=== PATIENT | female | born 1990 | race African-American/Black ===

== ENCOUNTER 2017-04-19 05:19 | Inpatient (IN) | payer MEDICAID ==
[~2017-04-19 05:19] MED LIST: Citric Acid/Sodium Citrate Solution 30 ML Cup PO SCH; Lactated Ringers 1,000 ML IV SCH; Sodium Chloride 0.9% 10 ML Syringe FLUSH PRN; Sodium Chloride 0.9% 2.5 ML Syringe FLUSH PRN
--- NOTE | 2017-04-19 05:47 | PCM.PREANE ---
Preanesthetic Assessment - Procedure Proposed Procedure: #2 - Anesthesia/Transfusion/Family Hx Anesthesia History: Prior Anesthesia Without Reaction (general anesthetic for C- section in [facility] 2 yr ago, no problems) Family History of Anesthesia Reaction: No Transfusion History: No Prior Transfusion(s) Intubation History: Unknown Additional History: Speaks little [place]. 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 - Review of Systems General: Other () Pulmonary: No Symptoms Cardiovascular: No Symptoms Gastrointestinal: Other (GERD of ) Neurological: No Symptoms Other: Reports: None - Physical Assessment NPO Status Date: 04/18/17 NPO Status Time: 23:00 Height: 5 ft 3 in Weight: 191 lb ASA Class: 2 Mental Status: Alert & Oriented x3 Airway Class: Mallampati = 1 Dentition: Reports: Normal Dentition Thyro-Mental Finger Breadths: 3 Mouth Opening Finger Breadths: 3 ROM/Head Extension: Full Lungs: Clear to Auscultation, Normal Respiratory Effort Cardiovascular: Regular Rate, Regular Rhythm, No Murmurs - Allergies Allergies/Adverse Reactions: Allergies Allergy/AdvReac Type Severity Reaction Status Date / Time No Known Allergies Allergy Verified 04/17/17 09:54 - Blood Blood Available: Yes Product(s) Available: PRBC (T and S) - Anesthesia Plan Pre-Op Medication Ordered: Antacids - Acknowledgements Anesthesia Type Planned: Spinal Pt an Appropriate Candidate for the Planned Anesthesia: Yes Alternatives and Risks of Anesthesia Discussed w Pt/Guardian: Yes Pt/Guardian Understands and Agrees with Anesthesia Plan: Yes PreAnesthesia Questionnaire 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 [No Known Home Meds] 04/17/17 [History] - CURRENT (IN HOUSE) MEDS Current Meds: Current Medications Citric Acid/Sodium Citrate (Bicitra Solution) 30 ml PO .ONCE PRICILLA Lactated Ringer's (Ringers, Lactated) 1,000 mls @ 500 mls/hr IV .BOLUS PRICILLA Sodium Chloride (Saline Flush) 10 ml FLUSH ASDIRECTED PRN PRN Reason: Keep Vein Open Sodium Chloride (Saline Flush) 2.5 ml FLUSH ASDIRECTED PRN PRN Reason: Keep Vein Open
[2017-04-19] MEDS ORDERED: Sodium Chloride 0.9% 10 ML Syringe FLUSH PRN (05:49)
[2017-04-19] MEDS ORDERED: ceFAZolin 2 GM in Premix Bag 1 BAG IV ONE (05:49)
[2017-04-19] MEDS ORDERED: Sodium Chloride 0.9% 2.5 ML Syringe FLUSH PRN (05:49)
[2017-04-19] MEDS ORDERED: Citric Acid/Sodium Citrate Solution 30 ML Cup PO SCH (06:00)
[2017-04-19] MEDS ORDERED: Lactated Ringers 1,000 ML IV SCH ×2 (06:00→09:00)
[2017-04-19] MEDS ORDERED: Morphine PF 10 MG/10 ML SDV ONE (07:19)
[2017-04-19] MEDS ORDERED: Oxytocin 10 Units/1 ML SDV ONE (07:19)
[2017-04-19] MEDS ORDERED: ePHEDrine 50 MG/ML SDV ONE (07:23)
[2017-04-19] MEDS ORDERED: Midazolam 1 MG/ML 2 ML SDV ONE (08:14)
[2017-04-19] MEDS ORDERED: Propofol 200 MG/20 ML SDV ONE (08:25)
[2017-04-19] MEDS ORDERED: fentaNYL 100 MCG/2 ML SDV ONE (08:54)
[2017-04-19] MEDS ORDERED: Octyl 2-Cyanoacrylate 1 Tube ONE (08:59)
[2017-04-19] MEDS ORDERED: Bisacodyl 10 MG Supp RECTAL PRN (09:00)
[2017-04-19] MEDS ORDERED: Ondansetron 4 MG/2 ML SDV IV PRN (09:00)
[2017-04-19] MEDS ORDERED: diphenhydrAMINE 50 MG/ML SDV IVPUSH PRN (09:00)
[2017-04-19] MEDS ORDERED: Acetaminophen/oxyCODONE 325-5 MG Tab PO PRN ×2 (09:00→09:31)
[2017-04-19] MEDS ORDERED: Ibuprofen 800 MG Tab PO PRN (09:00)
[2017-04-19] MEDS ORDERED: Lanolin 100% Cream 7 GM Tube TOP PRN (09:00)
--- NOTE | 2017-04-19 09:04 | PCM.LDHP ---
L&D History of Present Illness - General Date of Service: 04/19/17 Admit Problem/Dx: Patient Status Order with Admit Dx/Problem 04/18/17 08:44 Patient Status [ADT] Routine 04/19/17 05:49 Patient Status [ADT] Routine 04/19/17 09:00 Patient Status [ADT] Routine Admission Diagnosis/Problem Admission Diagnosis/Problem Source of Information: Patient History Limitations: Reports: No Limitations - History of Present Illness Improves with: Reports: None Worsens with: Reports: None Associated Symptoms: Reports: N - Related Data Allergies/Adverse Reactions: Allergies Allergy/AdvReac Type Severity Reaction Status Date / Time No Known Allergies Allergy Verified 04/17/17 09:54 Home Medications: Home Meds . 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: Endocrine/Metabolic History: Reports: Obesity/BMI 30+ - Past Surgical History Female Surgical History: Reports: Section Social & Family History - Tobacco Use Smoking Status *Q: Never Smoker - Recreational Drug Use Recreational Drug Use: No Drug Use in Last 12 Months: No H&P Review of Systems - Review of Systems: Review Of Systems: See Below General: Reports: No Symptoms HEENT: Reports: No Symptoms Pulmonary: Reports: No Symptoms Cardiovascular: Reports: No Symptoms Gastrointestinal: Reports: No Symptoms Genitourinary: Reports: No Symptoms Musculoskeletal: Reports: No Symptoms Skin: Reports: No Symptoms Psychiatric: Reports: No Symptoms Neurological: Reports: No Symptoms Hematologic/Lymphatic: Reports: No Symptoms Immunologic: Reports: No Symptoms L&D Exam - Exam Exam: See Below - Vital Signs Weight: 86.636 kg - OB Specific Contraction Intensity: Mild Movement: Active Heart Tones: Present Presentation: Vertex - Cordero Score Cordero Score Cervix Position: Posterior Cordero Score Consistency: Firm - Exam General: Alert, Oriented HEENT: PERRLA, Conjunctiva Clear, EACs Clear, EOMI, Hearing Intact, Mucosa Moist & Wall, Nares Patent, Normal Nasal Septum, Posterior Pharynx Clear, TMs Clear Neck: Supple, Trachea Midline Lungs: Clear to Auscultation, Normal Respiratory Effort Cardiovascular: Regular Rate, Regular Rhythm GI/Abdominal Exam: Normal Bowel Sounds, Soft, Non-Tender, No Organomegaly, No Distention, No Abnormal Bruit, No Mass, Pelvis Stable Rectal Exam: Normal Exam, Normal Rectal Tone Genitourinary: Normal external exam, Normal bimanual exam, Normal speculum exam Back Exam: Normal Inspection, Full Range of Motion Extremities: Normal Inspection, Normal Range of Motion, Non-Tender, No Pedal Edema, Normal Capillary Refill Skin: Warm, Dry, Intact Neurological: Cranial Nerves Intact, Reflexes Equal Bilateral Psychiatric: Alert, Normal Affect, Normal Mood - Patient Data Lab Results Last 24 hrs: Laboratory Results - last 24 hr 04/19/17 04/19/17 Range/Units 06:10 06:10 WBC 5.39 (4.0-11.0) K/uL RBC 4.34 (4.30-5.90) M/uL Hgb 12.2 (12.0-16.0) g/dL Hct 36.2 (36.0-46.0) % MCV 83.4 (80.0-98.0) fL MCH 28.1 (27.0-32.0) pg MCHC 33.7 (31.0-37.0) g/dL RDW Std Deviation 41.3 (28.0-62.0) fl RDW Coeff of Shy 14 (11.0-15.0) % Plt Count 209 (150-400) K/uL MPV 9.20 (7.40-12.00) fL Nucleated RBC % 0.0 /100WBC Nucleated RBCs # 0 K/uL Blood Type O POSITIVE Antibody Screen NEGATIVE Result Diagrams: 04/19/17 06:10 Problem List Initiated/Reviewed/Updated: Yes Orders Last 24hrs: Active Orders 24 hr Category Date Time Status Patient Status [ADT] Routine ADT 04/19/17 09:00 Ordered Ambulate [RC] PER UNIT ROUTINE Care 04/19/17 09:00 Ordered Antiembolic Devices [RC] PER UNIT ROUTINE Care 04/19/17 09:01 Ordered Communication Order [RC] PER UNIT ROUTINE Care 04/19/17 09:00 Ordered Communication Order [RC] PER UNIT ROUTINE Care 04/19/17 09:00 Ordered Communication Order [RC] Per Unit Routine Care 04/19/17 09:00 Ordered Non Stress Test [RC] PER UNIT ROUTINE Care 04/18/17 08:44 Active Non Stress Test [RC] PER UNIT ROUTINE Care 04/19/17 05:49 Active May Shower [RC] ASDIRECTED Care 04/19/17 09:00 Ordered Notify Provider Vital Signs [RC] PRN Care 04/19/17 05:49 Active Procedure Site Prep Instruct [RC] ASDIRECTED Care 04/18/17 08:44 Active Procedure Site Prep Instruct [RC] ASDIRECTED Care 04/19/17 05:49 Active RT Incentive Spirometry [RC] Q2HWA Care 04/19/17 09:00 Ordered Up ad Tanya [RC] ASDIRECTED Care 04/18/17 08:44 Active Up ad Tanya [RC] ASDIRECTED Care 04/19/17 05:49 Active Verify Patient Consent Obtain [RC] ASDIRECTED Care 04/19/17 05:49 Active Vital Signs [RC] PER UNIT ROUTINE Care 04/18/17 08:44 Active Vital Signs [RC] PER UNIT ROUTINE Care 04/19/17 05:49 Active Vital Signs [RC] PER UNIT ROUTINE Care 04/19/17 09:00 Ordered HEMOGLOBIN/HEMATOCRIT,HH [HEME] Timed Lab 04/20/17 05:11 Ordered Acetaminophen/oxyCODONE [Percocet 325-5 MG] Med 04/19/17 09:00 Ordered 1 tab PO Q4H PRN Acetaminophen/oxyCODONE [Percocet 325-5 MG] Med 04/19/17 09:00 Ordered 2 tab PO Q4H PRN Bisacodyl [Dulcolax] Med 04/19/17 09:00 Ordered 10 mg RECTAL .ONCE PRN Citric Acid/Sodium Citrate [Bicitra Solution] Med 04/18/17 08:45 Active 30 ml PO .ONCE Citric Acid/Sodium Citrate [Bicitra Solution] Med 04/19/17 06:00 Active 30 ml PO .ONCE Docusate Sodium [Colace] Med 04/19/17 09:00 Ordered 100 mg PO BID Ibuprofen [Motrin] Med 04/19/17 09:00 Ordered 800 mg PO Q8H PRN Ketorolac [Toradol] Med 04/19/17 09:00 Ordered 30 mg IVPUSH Q6H Lactated Ringers @ 125 MLS/HR(1000ml) Med 04/19/17 09:00 Ordered Lactated Ringers [Ringers, Lactated] 1,000 ml IV ASDIRECTED Lactated Ringers [Ringers, Lactated] 1,000 ml Med 04/18/17 08:45 Active IV .BOLUS Lactated Ringers [Ringers, Lactated] 1,000 ml Med 04/19/17 06:00 Active IV .BOLUS Lanolin [Lansinoh HPA] Med 04/19/17 09:00 Ordered See Dose Instructions TOP ASDIRECTED PRN Ondansetron [Zofran] Med 04/19/17 09:00 Ordered 4 mg IV Q4H PRN Sodium Chloride 0.9% [Saline Flush] Med 04/18/17 08:44 Active 10 ml FLUSH ASDIRECTED PRN Sodium Chloride 0.9% [Saline Flush] Med 04/19/17 05:49 Active 10 ml FLUSH ASDIRECTED PRN Sodium Chloride 0.9% [Saline Flush] Med 04/18/17 08:44 Active 2.5 ml FLUSH ASDIRECTED PRN Sodium Chloride 0.9% [Saline Flush] Med 04/19/17 05:49 Active 2.5 ml FLUSH ASDIRECTED PRN diphenhydrAMINE [Benadryl] Med 04/19/17 09:00 Ordered 25 mg IVPUSH Q6H PRN Assess Lochia [WOMSER] Per Unit Routine Ot 04/19/17 09:00 Ordered Assess Uterine Involution [WOMSER] Per Unit Routine Ot 04/19/17 09:00 Ordered Breast Pump [WOMSER] Per Unit Routine Ot 04/19/17 09:00 Ordered Peripheral IV Discontinue [OM.PC] Routine Ot 04/19/17 09:00 Ordered Peripheral IV Insertion Adult [OM.PC] Routine Oth 04/18/17 08:44 Ordered Peripheral IV Insertion Adult [OM.PC] Routine Ot 04/19/17 05:49 Ordered Schedule Procedure [COMM] Per Unit Routine Oth 04/18/17 08:44 Ordered Schedule Procedure [COMM] Per Unit Routine Ot 04/19/17 05:49 Ordered Sequential Compression Device [OM.PC] Per Unit Routine Ot 04/19/17 09:00 Ordered Resuscitation Status Routine Resus Stat 04/18/17 08:44 Ordered Medication Orders Citric Acid/Sodium Citrate (Bicitra Solution) 30 ml PO .ONCE PRICILLA Last Admin: 04/19/17 07:59 Dose: 30 ml Citric Acid/Sodium Citrate (Bicitra Solution) 30 ml PO .ONCE PRICILLA Lactated Ringer's (Ringers, Lactated) 1,000 mls @ 500 mls/hr IV .BOLUS PRICILLA Lactated Ringer's (Ringers, Lactated) 1,000 mls @ 500 mls/hr IV .BOLUS PRICILLA Last Admin: 04/19/17 07:37 Dose: 500 mls/hr Sodium Chloride (Saline Flush) 10 ml FLUSH ASDIRECTED PRN PRN Reason: Keep Vein Open Sodium Chloride (Saline Flush) 2.5 ml FLUSH ASDIRECTED PRN PRN Reason: Keep Vein Open Sodium Chloride (Saline Flush) 10 ml FLUSH ASDIRECTED PRN PRN Reason: Keep Vein Open Sodium Chloride (Saline Flush) 2.5 ml FLUSH ASDIRECTED PRN PRN Reason: Keep Vein Open Assessment/Plan Comment:: Termpregnancy admitted for elective repeat C/section.
--- NOTE | 2017-04-19 09:06 | PCM.OPNOTE ---
- General Post-Op/Procedure Note Date of Surgery/Procedure: 04/19/17 Operative Procedure(s): term elective repeat C/section. Pre Op Diagnosis: Term previous C/section X2 Post-Op Diagnosis: Same Anesthesia Technique: Spinal Primary Surgeon: Nithin Melendrez Fabricating Machine Operator: Wen Adames EBL in mLs: 700 Complications: None Condition: Good
[2017-04-19] MEDS ORDERED: Naloxone 0.4 MG/ML Syringe IVPUSH PRN (09:31)
[2017-04-19] MEDS ORDERED: Nalbuphine 10 MG/1 ML Vial IVPUSH PRN (09:31)
--- NOTE | 2017-04-19 09:48 | OR ---
SURGEON: Nithin Melendrez MD DATE OF PROCEDURE: 04/19/2017 PREOPERATIVE DIAGNOSIS: Term , previous section x2. POSTOPERATIVE DIAGNOSIS: Term , previous section x2. OPERATION PERFORMED: Repeat low transverse section. SILO WORKER: CHAPITO Ventura ANESTHESIA: Spinal, Heena Rodriguez and Dr. Howell. ESTIMATED BLOOD LOSS: 700 mL. COMPLICATIONS: None. FINDINGS: Normal uterus and ovary, male fetus in vertex presentation. score reported to be 8 and 9. The weight is not available. INDICATIONS FOR SURGERY: This patient is 26. She had 2 previous sections. She is term. She is followed in our clinic. She is admitted for elective repeat section. PROCEDURE IN DETAIL: The patient was brought to the OR, properly identified, and after a timeout and adequate level of spinal anesthesia, with a Fortune catheter in the bladder, the patient was prepped and draped in a sterile fashion as usual. Low transverse Pfannenstiel incision was done excising the old scar. The Claudia's fascia and rectus fascia was opened in direction of the incision, the two recti muscles were , and peritoneal cavity was entered. The lower uterine segment was identified and low transverse uterine incision was done and extended manually with the hand. Fetus was delivered without any problem, cried immediately. score was reported to be 8 and 9. The placenta delivered spontaneous, complete, and intact and then repair of the lower uterine segment done with 2-0 Vicryl continuous interlocking in 2 layers using 0 Vicryl and then reperitonealization of the lower uterine segment done with 2-0 Vicryl continuous. The peritoneal cavity evacuated completely from all blood and blood clot, and closed with 2-0 Vicryl continuous. The rectus fascia was closed with #1 PDS double strand continuous, the Claudia's fascia with 3-0 Vicryl continuous, and the skin closed in a subcuticular fashion using 5-0 monofilament sutures and Dermabond. Instrument and sponge count was correct. The patient tolerated the procedure well, went to recovery room in stable and general condition. JOSHUA / VICENTA /[id number]
[2017-04-19] MEDS: Ketorolac 30 MG/ML SDV IVPUSH SCH ×3 (09:49→21:05)
--- NOTE | 2017-04-19 09:55 | PCM.POSTAN ---
POST ANESTHESIA ASSESSMENT - MENTAL STATUS Mental Status: Alert, Oriented - RESPIRATORY Respiratory Status: Respiratory Rate WNL, Airway Patent, O2 Saturation Stable - CARDIOVASCULAR CV Status: Pulse Rate WNL, Blood Pressure Stable - GASTROINTESTINAL GI Status: No Symptoms - PAIN Pain Score: 0 - POST OP HYDRATION Hydration Status: Adequate & Stable - OBSERVATIONS Free Text/Narrative:: Pt stable with no pain reported unless fundal massage being performed. No nausea at this time.
[2017-04-19] MEDS: Docusate Sodium 100 MG Cap PO SCH ×2 (18:50→21:06)
[2017-04-20] MEDS: Ketorolac 30 MG/ML SDV IVPUSH SCH ×2 (03:15→09:49)
--- NOTE | 2017-04-20 07:50 | PCM.PNPP ---
- General Info Date of Service: 04/20/17 Admission Dx/Problem (Free Text): Patient Status Order with Admit Dx/Problem 04/18/17 08:44 Patient Status [ADT] Routine 04/19/17 05:49 Patient Status [ADT] Routine 04/19/17 09:00 Patient Status [ADT] Routine Admission Diagnosis/Problem Admission Diagnosis/Problem Functional Status: Reports: Pain Controlled, Tolerating Diet, Ambulating, Urinating - Review of Systems General: Reports: No Symptoms HEENT: Reports: No Symptoms Pulmonary: Reports: No Symptoms Cardiovascular: Reports: No Symptoms Gastrointestinal: Reports: No Symptoms Genitourinary: Reports: No Symptoms Musculoskeletal: Reports: No Symptoms Skin: Reports: No Symptoms Neurological: Reports: No Symptoms Psychiatric: Reports: No Symptoms - General Info Date of Service: 04/20/17 - Patient Data Vital Signs - Most Recent: Last Vital Signs Temp 36.6 C 04/20/17 05:00 Pulse 102 H 04/20/17 07:00 Resp 16 04/20/17 07:00 BP 108/66 04/20/17 05:00 Pulse Ox 98 04/20/17 07:00 Weight - Most Recent: 86.636 kg I&O - Last 24 Hours: Intake & Output 04/19/17 04/20/17 04/20/17 22:59 06:59 14:59 Intake Total 400 Output Total 175 1525 Balance -175 -1125 Lab Results - Last 24 Hours: Laboratory Results - last 24 hr 04/20/17 Range/Units 05:10 Hgb 7.1 L (12.0-16.0) g/dL Hct 21.6 L (36.0-46.0) % Med Orders - Current: Current Medications Bisacodyl (Dulcolax) 10 mg RECTAL .ONCE PRN PRN Reason: Constipation Citric Acid/Sodium Citrate (Bicitra Solution) 30 ml PO .ONCE PRICILLA Last Admin: 04/19/17 07:59 Dose: 30 ml Citric Acid/Sodium Citrate (Bicitra Solution) 30 ml PO .ONCE PRICILLA Diphenhydramine HCl (Benadryl) 25 mg IVPUSH Q6H PRN PRN Reason: Itching or Nausea Last Admin: 04/20/17 00:37 Dose: 25 mg Docusate Sodium (Colace) 100 mg PO BID PRICILLA Last Admin: 04/19/17 21:06 Dose: 100 mg Emollient Ointment (Lansinoh Hpa) 0 gm TOP ASDIRECTED PRN PRN Reason: Sore Nipples Lactated Ringer's (Ringers, Lactated) 1,000 mls @ 500 mls/hr IV .BOLUS PRICILLA Lactated Ringer's (Ringers, Lactated) 1,000 mls @ 500 mls/hr IV .BOLUS [facility] Last Admin: 04/19/17 07:37 Dose: 500 mls/hr Lactated Ringer's (Ringers, Lactated) 1,000 mls @ 125 mls/hr IV ASDIRECTED [facility] Last Admin: 04/19/17 12:11 Dose: 125 mls/hr Ibuprofen (Motrin) 800 mg PO Q8H PRN PRN Reason: mild pain or fever Ketorolac Tromethamine (Toradol) 30 mg IVPUSH Q6H [facility] Stop: 04/20/17 09:01 Last Admin: 04/20/17 03:15 Dose: 30 mg Nalbuphine HCl (Nubain) 2.5 mg IVPUSH Q3H PRN PRN Reason: Pruritis Stop: 04/20/17 09:33 Naloxone HCl (Narcan) 0.1 mg IVPUSH ONETIME PRN PRN Reason: RR<6 WITH STIMULATION Stop: 04/20/17 09:33 Ondansetron HCl (Zofran) 4 mg IV Q4H PRN PRN Reason: Nausea/Vomiting Last Admin: 04/19/17 12:06 Dose: 4 mg Oxycodone/Acetaminophen (Percocet 325-5 Mg) 1 tab PO Q4H PRN PRN Reason: Pain (moderate 4-6) Oxycodone/Acetaminophen (Percocet 325-5 Mg) 2 tab PO Q4H PRN PRN Reason: Pain (moderate 4-6) Oxycodone/Acetaminophen (Percocet 325-5 Mg) 1 tab PO .Q4HRS PRN PRN Reason: Pain (moderate 4-6) Stop: 04/20/17 08:15 Last Admin: 04/19/17 12:24 Dose: 1 tab Sodium Chloride (Saline Flush) 10 ml FLUSH ASDIRECTED PRN PRN Reason: Keep Vein Open Sodium Chloride (Saline Flush) 2.5 ml FLUSH ASDIRECTED PRN PRN Reason: Keep Vein Open Sodium Chloride (Saline Flush) 10 ml FLUSH ASDIRECTED PRN PRN Reason: Keep Vein Open Sodium Chloride (Saline Flush) 2.5 ml FLUSH ASDIRECTED PRN PRN Reason: Keep Vein Open Discontinued Medications Ephedrine Sulfate (Ephedrine Sulfate) Confirm Administered Dose 50 mg .ROUTE .STK-MED ONE Stop: 04/19/17 07:24 Fentanyl (Sublimaze) Confirm Administered Dose 100 mcg .ROUTE .STK-MED ONE Stop: 04/19/17 08:55 Cefazolin Sodium/Dextrose 2 gm (/ Premix) 50 mls @ 100 mls/hr IV ONETIME ONE Stop: 04/19/17 06:18 Last Admin: 04/19/17 18:50 Dose: Not Given Midazolam HCl (Versed 1 Mg/Ml) Confirm Administered Dose 2 mg .ROUTE .STK-MED ONE Stop: 04/19/17 08:15 Morphine Sulfate (Duramorph Pf) Confirm Administered Dose 10 mg .ROUTE .STK-MED ONE Stop: 04/19/17 07:20 Octyl Cyanoacrylate (Dermabond Advance) Confirm Administered Dose 1 applic .ROUTE .STK-MED ONE Stop: 04/19/17 09:00 Oxytocin (Pitocin) Confirm Administered Dose 30 unit .ROUTE .STK-MED ONE Stop: 04/19/17 07:20 Propofol (Diprivan 20 Ml) Confirm Administered Dose 200 mg .ROUTE .STK-MED ONE Stop: 04/19/17 08:26 - Interaction Infant Disposition, : [place] in Room with Family Infant Interaction: Holding Infant Feeding: Bottle Fed , Breastfed ; Nursed Well Support Person: - Recovery Exam Fundal Tone: Firm Fundal Level: At Umbilicus Fundal Placement: Midline Lochia Amount: Scant Lochia Color: Rubra/Red Perineum Description: Intact, Minimal Bruising/Swelling Episiotomy/Laceration: None Bladder Status: Nonpalpable, Indwelling Catheter in Place Urinary Elimination: Indwelling Catheter - Exam General: Alert, Oriented, Cooperative, No Acute Distress Lungs: Clear to Auscultation, Normal Respiratory Effort Cardiovascular: Regular Rate, Regular Rhythm, No Murmurs GI/Abdominal Exam: Soft, Non-Tender, No Organomegaly, No Distention Extremities: Normal Range of Motion, Non-Tender, No Pedal Edema, Normal Capillary Refill Skin: Warm Wound/Incisions: Drainage (Dressing changed this am by Dr Melendrez due to increased drainage. Incision well aproxamated, no erythema.) Neurological: No New Focal Deficit, Normal Speech, Normal Tone Psy/Mental Status: Alert, Normal Affect, Normal Mood - Problem List & Annotations (1) Supervision of normal IUP (intrauterine ) in multigravida SNOMED Code(s): 213595257, 675899898, 659537119 Code(s): Z34.80 - ENCOUNTER FOR SUPRVSN OF NORMAL , UNSP TRIMESTER Status: Acute Priority: High Current Visit: Yes Qualifiers: Trimester: third trimester Qualified Code(s): Z34.83 - Encounter for supervision of other normal , third trimester (2) delivery delivered SNOMED Code(s): 111803404 Code(s): O82 - ENCOUNTER FOR DELIVERY WITHOUT INDICATION Status: Acute Priority: High Current Visit: Yes - Problem List Review Problem List Initiated/Reviewed/Updated: Yes - Assessment Assessment:: in room with mom holding. and bottle feeding. Pt sitting up in bed alert and oriented, no complaints (used google translate Yi to Swahili) Denies any chest pain, SOB, pain or tenderness in legs/calfs. Pain medication helping. Hgb dropped from 12.6 to 7[address] Melendrez aware. - Plan Plan:: Termpregnancy admitted for elective repeat C/section. Post Stable, continue pp plan of care. May discharge home tomorrow if cont stable.
[2017-04-20] MEDS: Docusate Sodium 100 MG Cap PO SCH ×2 (09:49→21:08)
[2017-04-20] MEDS: Acetaminophen/oxyCODONE 325-5 MG Tab PO PRN (16:56)
--- NOTE | 2017-04-20 23:15 | PCM48HPAN ---
Post Anesthesia Note - EVALUATION WITHIN 48HRS OF ANESTHETIC Vital Signs in Normal Range: Yes Patient Participated in Evaluation: Yes Respiratory Function Stable: Yes Airway Patent: Yes Cardiovascular Function Stable: Yes Hydration Status Stable: Yes Pain Control Satisfactory: Yes Nausea and Vomiting Control Satisfactory: Yes Mental Status Recovered: Yes - COMMENTS/OBSERVATIONS Free Text/Narrative:: Mild tachycardia and lightheaded, HgB 5 point drop from pre-op, likely volume related
[2017-04-21] MEDS: Acetaminophen/oxyCODONE 325-5 MG Tab PO PRN ×2 (00:20→10:14)
--- NOTE | 2017-04-21 09:34 | PCM.DCSUM1 ---
Discharge Summary - Hospital Course Free Text/Narrative:: Discharge home with infant, follow up in ten days for an incision check and in six weeks or sooner if needed. (Translate into Swahili: Terry ackerman sheron na shanice hamiltona siku norman joya ukaguzi wa incision na tamela pete wiki jose kwa ajili ya ziara baada ya sehemu.) (translate into [place]: Shanti galindo"shana et suivre la clinique dans dex jours pour un controle d"incision, puis dans six semaines pour la visite post-). - Discharge Data Discharge Date: 04/21/17 Discharge Disposition: Home, Self-Care 01 Condition: Good - Discharge Diagnosis/Problem(s) (1) Supervision of normal IUP (intrauterine ) in multigravida SNOMED Code(s): 670617090, [id number], [id number] ICD Code: Z34.80 - ENCOUNTER FOR SUPRVSN OF NORMAL , UNSP TRIMESTER Status: Acute Priority: High Current Visit: Yes Qualifiers: Trimester: third trimester Qualified Code(s): Z34.83 - Encounter for supervision of other normal , third trimester (2) delivery delivered SNOMED Code(s): 864483590 ICD Code: O82 - ENCOUNTER FOR DELIVERY WITHOUT INDICATION Status: Acute Priority: High Current Visit: Yes - Patient Summary/Data Operative Procedure(s) Performed: term elective repeat C/section. - Patient Instructions Diet: Usual Diet as Tolerated Activity: As Tolerated, Rest and Relax Today Driving: Do Not Drive Showering/Bathing: May Shower Wound/Incision Care: Keep Operative Site/Wound Site Clean and Dry Notify Provider of: Fever, Increased Pain, Swelling and Redness, Drainage, Nausea and/or Vomiting Other/Special Instructions: Discharge home with , follow up in ten days for an incision check and in six weeks or sooner if needed. (Translate into Swahili: Terry ackerman sheron na shanice hamiltona siku norman kwa ukaguzi wa incision na tamela pete wiki jose kwa ajili ya ziara baada ya sehemu.) (translate into [place]: Shanti galindo"shana et suivre la clinique dans dex jours pour un controle d"incision, puis dans six semaines pour la visite post-). - Discharge Plan Home Medications: Home Meds . [No Known Home Meds] 04/17/17 [History] Referrals: [facility] [place] [Outside] Nithin Melendrez MD [Physician] - ( week- April 27 @ 10:45am w/ Dr. Melendrez week- May 30 @ 10:45am w/ Dr. Melendrez) - General Info Date of Service: 04/21/17 Admission Dx/Problem (Free Text: Patient Status Order with Admit Dx/Problem 04/18/17 08:44 Patient Status [ADT] Routine 04/19/17 05:49 Patient Status [ADT] Routine 04/19/17 09:00 Patient Status [ADT] Routine Admission Diagnosis/Problem Admission Diagnosis/Problem Functional Status: Reports: Pain Controlled, Tolerating Diet, Ambulating, Urinating - Review of Systems General: Reports: No Symptoms HEENT: Reports: No Symptoms Pulmonary: Reports: No Symptoms Cardiovascular: Reports: No Symptoms Gastrointestinal: Reports: No Symptoms Genitourinary: Reports: No Symptoms Musculoskeletal: Reports: No Symptoms Skin: Reports: No Symptoms Neurological: Reports: No Symptoms Psychiatric: Reports: No Symptoms - Patient Data Vitals - Most Recent: Last Vital Signs Temp 36.8 C 04/21/17 04:00 Pulse 114 H 04/21/17 04:00 Resp 18 04/21/17 04:00 BP 129/56 L 04/21/17 04:00 Pulse Ox 97 04/21/17 04:00 Weight - Most Recent: 86.636 kg Med Orders - Current: Current Medications Bisacodyl (Dulcolax) 10 mg RECTAL .ONCE PRN PRN Reason: Constipation Citric Acid/Sodium Citrate (Bicitra Solution) 30 ml PO .ONCE PRICILLA Last Admin: 04/19/17 07:59 Dose: 30 ml Citric Acid/Sodium Citrate (Bicitra Solution) 30 ml PO .ONCE PRICILLA Diphenhydramine HCl (Benadryl) 25 mg IVPUSH Q6H PRN PRN Reason: Itching or Nausea Last Admin: 04/20/17 00:37 Dose: 25 mg Docusate Sodium (Colace) 100 mg PO BID [facility] Last Admin: 04/20/17 21:08 Dose: 100 mg Emollient Ointment (Lansinoh Hpa) 0 gm TOP ASDIRECTED PRN PRN Reason: Sore Nipples Lactated Ringer's (Ringers, Lactated) 1,000 mls @ 500 mls/hr IV .BOLUS PRICILLA Lactated Ringer's (Ringers, Lactated) 1,000 mls @ 500 mls/hr IV .BOLUS [facility] Last Admin: 04/19/17 07:37 Dose: 500 mls/hr Lactated Ringer's (Ringers, Lactated) 1,000 mls @ 125 mls/hr IV ASDIRECTED [facility] Last Admin: 04/19/17 12:11 Dose: 125 mls/hr Ibuprofen (Motrin) 800 mg PO Q8H PRN PRN Reason: mild pain or fever Ondansetron HCl (Zofran) 4 mg IV Q4H PRN PRN Reason: Nausea/Vomiting Last Admin: 04/19/17 12:06 Dose: 4 mg Oxycodone/Acetaminophen (Percocet 325-5 Mg) 1 tab PO Q4H PRN PRN Reason: Pain (moderate 4-6) Oxycodone/Acetaminophen (Percocet 325-5 Mg) 2 tab PO Q4H PRN PRN Reason: Pain (moderate 4-6) Last Admin: 04/21/17 00:20 Dose: 2 tab Sodium Chloride (Saline Flush) 10 ml FLUSH ASDIRECTED PRN PRN Reason: Keep Vein Open Sodium Chloride (Saline Flush) 2.5 ml FLUSH ASDIRECTED PRN PRN Reason: Keep Vein Open Last Admin: 04/20/17 09:51 Dose: 2.5 ml Sodium Chloride (Saline Flush) 10 ml FLUSH ASDIRECTED PRN PRN Reason: Keep Vein Open Sodium Chloride (Saline Flush) 2.5 ml FLUSH ASDIRECTED PRN PRN Reason: Keep Vein Open Discontinued Medications Ephedrine Sulfate (Ephedrine Sulfate) Confirm Administered Dose 50 mg .ROUTE .STK-MED ONE Stop: 04/19/17 07:24 Fentanyl (Sublimaze) Confirm Administered Dose 100 mcg .ROUTE .STK-MED ONE Stop: 04/19/17 08:55 Cefazolin Sodium/Dextrose 2 gm (/ Premix) 50 mls @ 100 mls/hr IV ONETIME ONE Stop: 04/19/17 06:18 Last Admin: 04/19/17 18:50 Dose: Not Given Ketorolac Tromethamine (Toradol) 30 mg IVPUSH Q6H PRICILLA Stop: 04/20/17 09:01 Last Admin: 04/20/17 09:49 Dose: 30 mg Midazolam HCl (Versed 1 Mg/Ml) Confirm Administered Dose 2 mg .ROUTE .STK-MED ONE Stop: 04/19/17 08:15 Morphine Sulfate (Duramorph Pf) Confirm Administered Dose 10 mg .ROUTE .STK-MED ONE Stop: 04/19/17 07:20 Nalbuphine HCl (Nubain) 2.5 mg IVPUSH Q3H PRN PRN Reason: Pruritis Stop: 04/20/17 09:33 Naloxone HCl (Narcan) 0.1 mg IVPUSH ONETIME PRN PRN Reason: RR<6 WITH STIMULATION Stop: 04/20/17 09:33 Octyl Cyanoacrylate (Dermabond Advance) Confirm Administered Dose 1 applic .ROUTE .STK-MED ONE Stop: 04/19/17 09:00 Oxycodone/Acetaminophen (Percocet 325-5 Mg) 1 tab PO .Q4HRS PRN PRN Reason: Pain (moderate 4-6) Stop: 04/20/17 08:15 Last Admin: 04/19/17 12:24 Dose: 1 tab Oxytocin (Pitocin) Confirm Administered Dose 30 unit .ROUTE .STK-MED ONE Stop: 04/19/17 07:20 Propofol (Diprivan 20 Ml) Confirm Administered Dose 200 mg .ROUTE .STK-MED ONE Stop: 04/19/17 08:26 - Exam General: Reports: Alert, Oriented, Cooperative, No Acute Distress Lungs: Reports: Clear to Auscultation, Normal Respiratory Effort Cardiovascular: Reports: Regular Rate, Regular Rhythm, No Murmurs GI/Abdominal Exam: Normal Bowel Sounds, Soft, Non-Tender, No Organomegaly, No Distention, No Abnormal Bruit, No Mass, Pelvis Stable (Female) Exam: Vaginal Bleeding Rectal (Female) Exam: Deferred Back Exam: Reports: Full Range of Motion Extremities: Normal Range of Motion, Non-Tender, No Pedal Edema, Normal Capillary Refill Skin: Reports: Warm, Dry, Intact Wound/Incisions: Reports: Healing Well, No Drainage Neurological: Reports: No New Focal Deficit, Normal Speech, Normal Tone Psy/Mental Status: Reports: Alert, Normal Affect, Normal Mood *Q Meaningful Use (DIS) - VTE *Q VTE Criteria *Q: - Stroke *Q Stroke Criteria *Q: - AMI *Q AMI Criteria *Q:
[2017-04-21] MEDS: Docusate Sodium 100 MG Cap PO SCH (10:14)
[2017-04-21 10:32] VITALS: BP 101/62
== END 2017-04-21 12:00 | disposition home or self-care (01) | DRG 766 ==
LOC: MW.OB 05:19
PROVIDERS: ADMIT Obstetrics & Gynecology; ATTEND Obstetrics & Gynecology
PROC: 10D00Z1 Extraction of Products of Conception, Low, Open Approach (ICD-10-PCS; principal; 2017-04-19)
DX: O34.211 Maternal care for low transverse scar from previous cesarean delivery (principal); Z3A.38 38 weeks gestation of pregnancy; Z37.0 Single live birth
CPT/HCPCS: 01961; 36415; 59025; 85014; 85018; 85027; 86850; 86900; 86901; A9270-GY; J1200; J1885; J2250; J2270; J2405; J2590; J2704; J3010; J7120

== ENCOUNTER 2017-04-24 22:23 | Emergency (ER) | payer MEDICAID ==
[2017-04-24] MEDS ORDERED: Acetaminophen/HYDROcodone 325-10 MG Tab PO ONE (22:41)
[2017-04-24] MEDS ORDERED: Acetaminophen/HYDROcodone 325-5 MG Tab PO ONE (22:41)
--- NOTE | 2017-04-24 22:44 | EDM.PDOC ---
ED HPI GENERAL MEDICAL PROBLEM - General Chief Complaint: Abdominal Pain Stated Complaint: PAIN CSECTION Time Seen by Provider: 04/24/17 22:43 - History of Present Illness INITIAL COMMENTS - FREE TEXT/NARRATIVE: HISTORY AND PHYSICAL: History of present illness: Patient 26-year-old female status post recent section and did not get her postoperative pain medications filled on discharge and is here now for pain medication she's had no fever chills nausea vomiting her tendernesses in her incisional region is been no urinary symptoms shortness of breath cough or other complaints. Review of systems: As per history of present illness and below otherwise all systems reviewed and negative. Past medical history: As per history of present illness and as reviewed below otherwise noncontributory. Surgical history: As per history of present illness and as reviewed below otherwise noncontributory. Social history: No reported history of drug or alcohol abuse. Family history: As per history of present illness and as reviewed below otherwise noncontributory. Physical exam: HEENT: Atraumatic, normocephalic, pupils reactive, negative for conjunctival pallor or scleral icterus, mucous membranes moist, throat clear, neck supple, nontender, trachea midline. Lungs: Clear to auscultation, breath sounds equal bilaterally, chest nontender. Heart: S1S2, regular, negative for clicks, rubs, or JVD. Abdomen: Soft, nondistended, incisional tenderness with no erythema no discharge no warmth noted. Negative for masses or hepatosplenomegaly. Negative for costovertebral tenderness. Pelvis: Stable nontender. Genitourinary: Deferred. Rectal: Deferred. Extremities: Atraumatic, negative for cords or calf pain. Neurovascular unremarkable. Neuro: Awake, alert, oriented. Cranial nerves II through XII unremarkable. Cerebellum unremarkable. Motor and sensory unremarkable throughout. Exam nonfocal. Diagnostics: Deferred Therapeutics: Hydrocodone 5 mg by mouth Impression: #1 observation status post section with postoperative incisional pain Definitive disposition and diagnosis as appropriate pending reevaluation and review of above. - Related Data Allergies Allergy/AdvReac Type Severity Reaction Status Date / Time No Known Allergies Allergy Verified 04/24/17 22:34 Home Meds: Home Meds . [No Known Home Meds] 04/17/17 [History] Past Medical History HEENT History: SPECIAL AGENT History: Reports: Endocrine/Metabolic History: Reports: Obesity/BMI 30+ - Past Surgical History Female Surgical History: Reports: Section Social & Family History - Tobacco Use Smoking Status *Q: Never Smoker - Recreational Drug Use Recreational Drug Use: No Drug Use in Last 12 Months: No ED ROS GENERAL - Review of Systems Review Of Systems: ROS reveals no pertinent complaints other than HPI. ED EXAM, GENERAL - Physical Exam Exam: See Below (See dictation) Departure - Departure Time of Disposition: 22:43 Disposition: Home, Self-Care 01 Condition: Good Clinical Impression: Postoperative pain - Discharge Information Forms: ED Department Discharge Additional Instructions: The following information is given to patients seen in the emergency department who are being discharged to home. This information is to outline your options for follow-up care. We provide all patients seen in our emergency department with a follow-up referral. The need for follow-up, as well as the timing and circumstances, are variable depending upon the specifics of your emergency department visit. If you don't have a primary care physician on staff, we will provide you with a referral. We always advise you to contact your personal physician following an emergency department visit to inform them of the circumstance of the visit and for follow-up with them and/or the need for any referrals to a consulting specialist. The emergency department will also refer you to a specialist when appropriate. This referral assures that you have the opportunity for followup care with a specialist. All of these measure are taken in an effort to provide you with optimal care, which includes your followup. Under all circumstances we always encourage you to contact your private physician who remains a resource for coordinating your care. When calling for followup care, please make the office aware that this follow-up is from your recent emergency room visit. If for any reason you are refused follow-up, please contact the [facility] emergency department at and asked to speak to the emergency department charge nurse. Follow-up SLAG DUMPER as discussed fill prescription for pain medication taken as directed continue routine postoperative care return as needed as discussed
[2017-04-24] MEDS ORDERED: Ondansetron 4 MG/2 ML SDV IVPUSH ONE (22:55)
[2017-04-24] MEDS ORDERED: Sodium Chloride 0.9% 1,000 ML IV ONE (22:55)
[2017-04-24] MEDS ORDERED: HYDROmorphone 1 MG/ML Syringe IVPUSH ONE (22:55)
[2017-04-24] MEDS ORDERED: Sodium Chloride 0.9% 10 ML Syringe FLUSH PRN (22:55)
[2017-04-24] MEDS ORDERED: Sodium Chloride 0.9% 2.5 ML Syringe FLUSH PRN (22:55)
[2017-04-24 23:32] LABS: CHLORIDE,CL 110 mmol/L (98-110); SODIUM,NA 139 mmol/L (136-146)
[2017-04-25 00:07] VITALS: BP 107/66
== END 2017-04-25 00:01 | disposition home or self-care (01) ==
LOC: MW.ED 22:23
DX: G89.18 Other acute postprocedural pain (principal); R10.9 Unspecified abdominal pain; E66.9 Obesity, unspecified; Z98.890 Other specified postprocedural states; Z68.33 Body mass index [BMI] 33.0-33.9, adult
CPT/HCPCS: 36415; 80053; 85025; 96361; 96374; 96375; 99284; A9270; J1170; J2405; J7040; 99283